=== PATIENT | male | born 1945 | race Caucasian/White ===

== ENCOUNTER 2022-09-18 19:47 | Inpatient (IN) | payer MEDICARE ==
[~2022-09-18] VITALS: Ht 175.3 cm; Wt 102.0 kg
[2022-09-18 22:23] LABS: COVID AG,FIA SOURCE NASAL SWAB
[2022-09-18 22:25] LABS: BASOPHILS % (AUTO) 0.4 % (0.0-2.0); EOSINOPHILS % (AUTO) 1.2 % (1.0-6.0); HEMATOCRIT 46.3 % (41-53); HEMOGLOBIN 15.5 g/dL (13.5-17.5); LYMPHOCYTES # (AUTO) 1.1 K/uL (1.0-4.8); LYMPHOCYTES % (AUTO) 14.3 % (22.0-44.0); MEAN CORPUSCULAR HEMOGLOBIN 30.6 pg (26.0-34.0); MEAN CORPUSCULAR HGB CONC 33.5 G/dL (31.0-37.0); MEAN CORPUSCULAR VOLUME 91 fL (80-100); MONOCYTES # (AUTO) 1.5 K/uL (0.1-1.0); NEUTROPHILS # (AUTO) 4.7 K/uL (1.8-7.7); NEUTROPHILS % (AUTO) 63.6 % (40.0-70.0); PLATELET COUNT (AUTO) 161 K/uL (150-450); RED BLOOD CELL COUNT(AUTO) 5.07 MIL/uL (4.50-5.90); RED CELL DISTRIBUTION WIDTH 14.3 % (11.5-14.5)
[2022-09-18 22:34] LABS: CALCIUM, TOTAL 10.6 mg/dL (8.8-10.5); CREATININE 1.53 mg/dL (0.60-1.30); POTASSIUM 4.5 mmol/L (3.5-5.1)
[2022-09-18 22:40] LABS: ALBUMIN 4.3 g/dL (3.4-5.0); BILIRUBIN,TOTAL 0.7 mg/dL (0.1-1.0); TOTAL PROTEIN, SERUM 8.1 g/dL (6.4-8.2)
[2022-09-18 22:42] LABS: INFLUENZA TYPE A NEGATIVE FOR TYPE A (NEGATIVE); INFLUENZA TYPE B NEGATIVE FOR TYPE B (NEGATIVE)
[2022-09-18 22:43] LABS: INR 1.1 (0.9-1.1); PROTHROMBIN TIME 11.2 SEC (9.4-11.6)
[2022-09-18 22:46] LABS: MONOCYTES % (AUTO) 20.5 % (2.0-9.0)
[2022-09-18] MEDS ORDERED: BENZONATATE 100 MG CAPSULE PO PRN (23:30)
[2022-09-18] MEDS ORDERED: ONDANSETRON HCL 4 MG/2 ML VIAL IVP PRN (23:30)
[2022-09-18 23:59] LABS: D-DIMER 1.51 mg/L FEU (0.00-0.50)
[2022-09-19] VITALS (7 sets, daily range): BP systolic 112–143; BP diastolic 53–82
[2022-09-19] MEDS ORDERED: HEPARIN SODIUM,PORCINE 5,000 UNITS/ML VIAL SQ SCH
[2022-09-19] MEDS ORDERED: REMDESIVIR 200 MG in SODIUM CHLORIDE 0.9% 250 ML IV ONE ×2
[2022-09-19 00:09] LABS: C-REACTIVE PROTEIN QUANT 0.12 mg/dL (0.00-0.30)
[2022-09-19] MEDS ORDERED: SODIUM CHLORIDE 0.9% 500 ML IV ONE (00:23)
[2022-09-19] MEDS ORDERED: PNEUMOCOCCAL VACCINE POLYVALENT 0.5 ML VIAL [PPSV23] IM. ONE (01:45)
[2022-09-19] MEDS ORDERED: HEPARIN SODIUM,PORCINE 5,000 UNITS/ML VIAL IVP PRN ×2 (06:30)
[2022-09-19] MEDS ORDERED: HEPARIN SODIUM 25000 UNITS/D5W 250 ML IV PRN (06:30)
[2022-09-19 06:54] LABS: BASOPHILS % (AUTO) 0.7 % (0.0-2.0); EOSINOPHILS % (AUTO) 0.9 % (1.0-6.0); HEMATOCRIT 45.8 % (41-53); HEMOGLOBIN 15.2 g/dL (13.5-17.5); LYMPHOCYTES # (AUTO) 0.9 K/uL (1.0-4.8); LYMPHOCYTES % (AUTO) 15.3 % (22.0-44.0); MEAN CORPUSCULAR HEMOGLOBIN 30.4 pg (26.0-34.0); MEAN CORPUSCULAR HGB CONC 33.1 G/dL (31.0-37.0); MEAN CORPUSCULAR VOLUME 92 fL (80-100); MONOCYTES # (AUTO) 1.2 K/uL (0.1-1.0); NEUTROPHILS # (AUTO) 3.8 K/uL (1.8-7.7); NEUTROPHILS % (AUTO) 63.1 % (40.0-70.0); PLATELET COUNT (AUTO) 138 K/uL (150-450); RED BLOOD CELL COUNT(AUTO) 4.98 MIL/uL (4.50-5.90); RED CELL DISTRIBUTION WIDTH 14.4 % (11.5-14.5)
[2022-09-19 07:08] LABS: D-DIMER 1.27 mg/L FEU (0.00-0.50)
[2022-09-19] MEDS ORDERED: ALBUTEROL SULFATE 2.5 MG/0.5 ML NEB SOLUTION NEB PRN (07:15)
[2022-09-19] MEDS ORDERED: DEXAMETHASONE SOD PHOS 4 MG/ML VIAL IVP ONE (07:15)
[2022-09-19] MEDS ORDERED: IPRATROPIUM BROMIDE 0.5 MG/2.5 ML NEB SOLUTION NEB PRN (07:15)
[2022-09-19] MEDS ORDERED: BENZONATATE 100 MG CAPSULE PO PRN (07:15)
[2022-09-19 07:40] LABS: ALBUMIN 3.9 g/dL (3.4-5.0); BILIRUBIN,TOTAL 0.7 mg/dL (0.1-1.0); C-REACTIVE PROTEIN QUANT 0.18 mg/dL (0.00-0.30); CALCIUM, TOTAL 9.9 mg/dL (8.8-10.5); CREATININE 1.43 mg/dL (0.60-1.30); POTASSIUM 4.5 mmol/L (3.5-5.1); TOTAL PROTEIN, SERUM 7.5 g/dL (6.4-8.2)
[2022-09-19] MEDS ORDERED: GLIP5TAB12 PO (09:09)
[2022-09-19] MEDS ORDERED: IPRA4AER IH (09:09)
[2022-09-19] MEDS ORDERED: LOSA-382 PO (09:09)
[2022-09-19] MEDS ORDERED: NITR0.4T52 SL (09:09)
[2022-09-19] MEDS ORDERED: TEMA15CA PO (09:09)
[2022-09-19] MEDS ORDERED: FISH1CAP27 PO (09:09)
[2022-09-19] MEDS ORDERED: ATOR40TA28 PO (09:09)
[2022-09-19] MEDS ORDERED: ASPI-1450 PO (09:09)
[2022-09-19] MEDS ORDERED: PRED1 PO (09:09)
[2022-09-19] MEDS ORDERED: NIAC500T7 PO (09:09)
[2022-09-19] MEDS ORDERED: LEVO25TA9 PO (09:09)
[2022-09-19] MEDS ORDERED: SPIR-37 PO (09:09)
[2022-09-19] MEDS ORDERED: METF-1211 PO (09:09)
[2022-09-19] MEDS ORDERED: CARV12 PO (09:09)
[2022-09-19] MEDS: ENOXAPARIN SODIUM 60 MG/0.6 ML PF SYRINGE SQ SCH (10:56)
[2022-09-19] MEDS: ASCORBIC ACID 500 MG TABLET PO SCH ×2 (11:29→23:31)
[2022-09-19] MEDS: ZINC SULFATE 220 MG CAPSULE PO SCH ×2 (11:29→23:31)
[2022-09-19] MEDS: FAMOTIDINE 10 MG/ML 2 ML VIAL IVP SCH (11:30)
[2022-09-19] MEDS: INSULIN LISPRO 100 UNITS/ML SQ PRN ×2 (12:11→18:04)
[2022-09-19] MEDS ORDERED: DEXTROSE 50%-WATER 25 GM/50 ML SYRINGE IVP PRN (12:15)
[2022-09-19] MEDS ORDERED: ALBUTEROL SULFATE HFA 90 MCG/PUFF 8 GM INHALER IH PRN (13:45)
[2022-09-19] MEDS ORDERED: NITROGLYCERIN 0.4 MG SUBLINGUAL TABLET #25 SL PRN (13:45)
[2022-09-19 14:31] LABS: GLUCOMETER DEV NAME(LOC) 6N.1; GLUCOSE,POINT OF CARE 248 MG/DL (70-110)
[2022-09-19 17:46] LABS: GLUCOMETER DEV NAME(LOC) 5S.2B; GLUCOSE,POINT OF CARE 154 MG/DL (70-110)
[2022-09-19] MEDS: BUDESONIDE 0.5 MG/2 ML NEB SOLUTION NEB SCH (19:54)
[2022-09-19] MEDS: OMEGA-3/DHA/EPA/FISH OIL 1,000 MG CAPSULE PO SCH (21:00)
[2022-09-19] MEDS ORDERED: OMEGA-3/DHA/EPA/FISH OIL 1,000 MG CAPSULE PO SCH (21:00)
[2022-09-19 22:56] LABS: GLUCOMETER DEV NAME(LOC) 5N.1C; GLUCOSE,POINT OF CARE 129 MG/DL (70-110)
[2022-09-19] MEDS: CARVEDILOL 12.5 MG TABLET PO SCH (23:31)
[2022-09-19] MEDS: REMDESIVIR 100 MG in SODIUM CHLORIDE 0.9% 250 ML IV SCH (23:31)
[2022-09-20 03:35] VITALS: BP 124/64
[2022-09-20 06:26] LABS: GLUCOMETER DEV NAME(LOC) 5S.1B; GLUCOSE,POINT OF CARE 113 MG/DL (70-110)
[2022-09-20] MEDS: BUDESONIDE 0.5 MG/2 ML NEB SOLUTION NEB SCH ×2 (07:10→20:32)
[2022-09-20 08:15] VITALS: BP 110/73
[2022-09-20] MEDS: ENOXAPARIN SODIUM 60 MG/0.6 ML PF SYRINGE SQ SCH (09:25)
[2022-09-20] MEDS: DEXAMETHASONE SOD PHOS 4 MG/ML VIAL IVP SCH (09:26)
[2022-09-20] MEDS: FAMOTIDINE 10 MG/ML 2 ML VIAL IVP SCH (09:27)
[2022-09-20] MEDS: ATORVASTATIN CALCIUM 40 MG TABLET PO SCH (09:27)
[2022-09-20] MEDS: OMEGA-3/DHA/EPA/FISH OIL 1,000 MG CAPSULE PO SCH ×2 (09:27→22:53)
[2022-09-20] MEDS: ASCORBIC ACID 500 MG TABLET PO SCH ×2 (09:28→22:53)
[2022-09-20] MEDS: ZINC SULFATE 220 MG CAPSULE PO SCH ×2 (09:28→22:53)
[2022-09-20] MEDS: ASPIRIN 81 MG CHEWABLE TABLET PO SCH (09:28)
[2022-09-20] MEDS: CARVEDILOL 12.5 MG TABLET PO SCH ×2 (09:29→22:54)
[2022-09-20] MEDS: LOSARTAN POTASSIUM 50 MG TABLET PO SCH (09:29)
[2022-09-20] MEDS: ALBUTEROL SULFATE HFA 90 MCG/PUFF 8 GM INHALER IH SCH ×2 (12:00→18:53)
[2022-09-20 12:30] VITALS: BP 105/57
[2022-09-20 15:17] LABS: GLUCOMETER DEV NAME(LOC) 5S.2B; GLUCOSE,POINT OF CARE 132 MG/DL (70-110)
[2022-09-20 15:36] LABS: BASOPHILS % (AUTO) 0.6 % (0.0-2.0); EOSINOPHILS % (AUTO) 0 % (1.0-6.0); HEMATOCRIT 44.4 % (41-53); HEMOGLOBIN 15.1 g/dL (13.5-17.5); LYMPHOCYTES # (AUTO) 0.6 K/uL (1.0-4.8); LYMPHOCYTES % (AUTO) 12.6 % (22.0-44.0); MEAN CORPUSCULAR VOLUME 91 fL (80-100); MONOCYTES # (AUTO) 0.3 K/uL (0.1-1.0); MONOCYTES % (AUTO) 5.7 % (2.0-9.0); NEUTROPHILS # (AUTO) 4.1 K/uL (1.8-7.7); NEUTROPHILS % (AUTO) 81.1 % (40.0-70.0); PLATELET COUNT (AUTO) 164 K/uL (150-450); RED BLOOD CELL COUNT(AUTO) 4.87 MIL/uL (4.50-5.90); RED CELL DISTRIBUTION WIDTH 14.2 % (11.5-14.5)
[2022-09-20 15:57] LABS: ALBUMIN 3.8 g/dL (3.4-5.0); BILIRUBIN,TOTAL 0.6 mg/dL (0.1-1.0); C-REACTIVE PROTEIN QUANT 0.23 mg/dL (0.00-0.30); CALCIUM, TOTAL 9.1 mg/dL (8.8-10.5); CREATININE 1.48 mg/dL (0.60-1.30); MAGNESIUM 1.9 mg/dL (1.80-2.40); POTASSIUM 4.6 mmol/L (3.5-5.1); TOTAL PROTEIN, SERUM 7.7 g/dL (6.4-8.2)
[2022-09-20 16:30] VITALS: BP 109/64
[2022-09-20 20:02] VITALS: BP 115/68
[2022-09-20] MEDS: REMDESIVIR 100 MG in SODIUM CHLORIDE 0.9% 250 ML IV SCH (22:54)
[2022-09-20] MEDS: TEMAZEPAM 15 MG CAPSULE PO PRN (22:54)
[2022-09-20] MEDS: INSULIN LISPRO 100 UNITS/ML SQ PRN (23:13)
[2022-09-21 00:16] VITALS: BP 126/75
[2022-09-21 00:37] LABS: GLUCOMETER DEV NAME(LOC) 5N.1C; GLUCOSE,POINT OF CARE 191 MG/DL (70-110)
[2022-09-21 05:19] VITALS: BP 109/69
[2022-09-21] MEDS: ALBUTEROL SULFATE HFA 90 MCG/PUFF 8 GM INHALER IH SCH ×4 (06:00→17:41)
[2022-09-21 06:55] LABS: BASOPHILS % (AUTO) 0.4 % (0.0-2.0); EOSINOPHILS % (AUTO) 0.1 % (1.0-6.0); HEMATOCRIT 44.3 % (41-53); HEMOGLOBIN 15.3 g/dL (13.5-17.5); LYMPHOCYTES # (AUTO) 1.3 K/uL (1.0-4.8); LYMPHOCYTES % (AUTO) 22.8 % (22.0-44.0); MEAN CORPUSCULAR HEMOGLOBIN 31.4 pg (26.0-34.0); MEAN CORPUSCULAR HGB CONC 34.5 G/dL (31.0-37.0); MEAN CORPUSCULAR VOLUME 91 fL (80-100); MONOCYTES # (AUTO) 0.8 K/uL (0.1-1.0); MONOCYTES % (AUTO) 13.9 % (2.0-9.0); NEUTROPHILS # (AUTO) 3.5 K/uL (1.8-7.7); NEUTROPHILS % (AUTO) 62.8 % (40.0-70.0); PLATELET COUNT (AUTO) 157 K/uL (150-450); RED BLOOD CELL COUNT(AUTO) 4.87 MIL/uL (4.50-5.90); RED CELL DISTRIBUTION WIDTH 14.5 % (11.5-14.5)
[2022-09-21 07:09] VITALS: BP 114/70
[2022-09-21 07:16] LABS: ALBUMIN 3.7 g/dL (3.4-5.0); BILIRUBIN,TOTAL 0.5 mg/dL (0.1-1.0); C-REACTIVE PROTEIN QUANT 0.09 mg/dL (0.00-0.30); CALCIUM, TOTAL 9.1 mg/dL (8.8-10.5); CREATININE 1.49 mg/dL (0.60-1.30); POTASSIUM 4.7 mmol/L (3.5-5.1); TOTAL PROTEIN, SERUM 7.2 g/dL (6.4-8.2)
[2022-09-21] MEDS: BUDESONIDE 0.5 MG/2 ML NEB SOLUTION NEB SCH ×2 (08:06→20:31)
[2022-09-21] MEDS: OMEGA-3/DHA/EPA/FISH OIL 1,000 MG CAPSULE PO SCH ×2 (09:21→21:15)
[2022-09-21] MEDS: FAMOTIDINE 10 MG/ML 2 ML VIAL IVP SCH (09:21)
[2022-09-21] MEDS: ATORVASTATIN CALCIUM 40 MG TABLET PO SCH (09:22)
[2022-09-21] MEDS: ASPIRIN 81 MG CHEWABLE TABLET PO SCH (09:22)
[2022-09-21] MEDS: DEXAMETHASONE SOD PHOS 4 MG/ML VIAL IVP SCH (09:22)
[2022-09-21] MEDS: CARVEDILOL 12.5 MG TABLET PO SCH ×2 (09:22→21:15)
[2022-09-21] MEDS: ASCORBIC ACID 500 MG TABLET PO SCH ×2 (09:23→21:15)
[2022-09-21] MEDS: ZINC SULFATE 220 MG CAPSULE PO SCH ×2 (09:23→21:15)
[2022-09-21] MEDS: LOSARTAN POTASSIUM 50 MG TABLET PO SCH (09:23)
[2022-09-21] MEDS: ENOXAPARIN SODIUM 60 MG/0.6 ML PF SYRINGE SQ SCH (09:26)
[2022-09-21 11:00] VITALS: BP 120/72
[2022-09-21] MEDS: INSULIN LISPRO 100 UNITS/ML SQ PRN ×3 (12:19→21:31)
[2022-09-21 18:31] VITALS: BP 118/70
[2022-09-21 20:07] LABS: GLUCOMETER DEV NAME(LOC) 5S.1B; GLUCOSE,POINT OF CARE 254 MG/DL (70-110)
[2022-09-21 20:07] LABS: GLUCOMETER DEV NAME(LOC) 5S.1B; GLUCOSE,POINT OF CARE 126 MG/DL (70-110)
[2022-09-21] MEDS: TEMAZEPAM 15 MG CAPSULE PO PRN (21:24)
[2022-09-21 21:35] VITALS: BP 119/78
[2022-09-21] MEDS: REMDESIVIR 100 MG in SODIUM CHLORIDE 0.9% 250 ML IV SCH (22:30)
[2022-09-22 01:56] VITALS: BP 125/52
[2022-09-22 02:16] LABS: GLUCOMETER DEV NAME(LOC) 5S.1B; GLUCOSE,POINT OF CARE 188 MG/DL (70-110)
[2022-09-22] MEDS: ALBUTEROL SULFATE HFA 90 MCG/PUFF 8 GM INHALER IH SCH ×3 (06:00→12:00)
[2022-09-22 06:58] LABS: BASOPHILS % (AUTO) 0.2 % (0.0-2.0); EOSINOPHILS % (AUTO) 0 % (1.0-6.0); HEMATOCRIT 42.6 % (41-53); HEMOGLOBIN 14.7 g/dL (13.5-17.5); LYMPHOCYTES # (AUTO) 1.1 K/uL (1.0-4.8); LYMPHOCYTES % (AUTO) 15.1 % (22.0-44.0); MEAN CORPUSCULAR HEMOGLOBIN 31.7 pg (26.0-34.0); MEAN CORPUSCULAR HGB CONC 34.5 G/dL (31.0-37.0); MEAN CORPUSCULAR VOLUME 92 fL (80-100); MONOCYTES # (AUTO) 0.7 K/uL (0.1-1.0); MONOCYTES % (AUTO) 9.7 % (2.0-9.0); NEUTROPHILS # (AUTO) 5.5 K/uL (1.8-7.7); PLATELET COUNT (AUTO) 155 K/uL (150-450); RED BLOOD CELL COUNT(AUTO) 4.63 MIL/uL (4.50-5.90); RED CELL DISTRIBUTION WIDTH 14.1 % (11.5-14.5)
[2022-09-22 07:26] LABS: ALANINE AMINOTRANSFERASE 26 U/L (12-78); ALBUMIN 3.5 g/dL (3.4-5.0); ALKALINE PHOSPHATASE 54 U/L (46-116); ANION GAP 5 mmol/L (8-16); ASPARTATE AMINOTRANSFERASE 18 U/L (15-37); BILIRUBIN,TOTAL 0.4 mg/dL (0.1-1.0); CARBON DIOXIDE 29 mmol/L (22-29); CHLORIDE 103 mmol/L (98-107); CREATININE 1.47 mg/dL (0.60-1.30); FERRITIN 154 ng/mL (26-388); GLUCOSE,RANDOM 142 mg/dL (70-110); POTASSIUM 4.7 mmol/L (3.5-5.1); SODIUM SERUM 137 mmol/L (136-145); TOTAL PROTEIN, SERUM 6.8 g/dL (6.4-8.2); UREA NITROGEN, BLOOD 40 mg/dL (7-18)
[2022-09-22 07:28] LABS: GLOMERULAR FILTR. RATE CALC 47 mL/min (>60)
[2022-09-22 07:29] LABS: C-REACTIVE PROTEIN QUANT < 0.05 mg/dL (0.00-0.30)
[2022-09-22 08:11] VITALS: BP 120/92
[2022-09-22] MEDS: BUDESONIDE 0.5 MG/2 ML NEB SOLUTION NEB SCH (08:44)
[2022-09-22] MEDS: ASCORBIC ACID 500 MG TABLET PO SCH (09:34)
[2022-09-22] MEDS: ASPIRIN 81 MG CHEWABLE TABLET PO SCH (09:34)
[2022-09-22] MEDS: ZINC SULFATE 220 MG CAPSULE PO SCH (09:34)
[2022-09-22] MEDS: DEXAMETHASONE SOD PHOS 4 MG/ML VIAL IVP SCH (09:34)
[2022-09-22] MEDS: ATORVASTATIN CALCIUM 40 MG TABLET PO SCH (09:35)
[2022-09-22] MEDS: CARVEDILOL 12.5 MG TABLET PO SCH (09:35)
[2022-09-22] MEDS: OMEGA-3/DHA/EPA/FISH OIL 1,000 MG CAPSULE PO SCH (09:35)
[2022-09-22] MEDS: FAMOTIDINE 10 MG/ML 2 ML VIAL IVP SCH (09:35)
[2022-09-22] MEDS: LOSARTAN POTASSIUM 50 MG TABLET PO SCH (09:35)
[2022-09-22] MEDS: ENOXAPARIN SODIUM 60 MG/0.6 ML PF SYRINGE SQ SCH (09:36)
[2022-09-22 11:21] VITALS: BP 116/82
[2022-09-22] MEDS ORDERED: DEXA6TAB PO (12:03)
[2022-09-22] MEDS ORDERED: ALBU8HFA IH (12:03)
[2022-09-22 12:17] LABS: GLUCOMETER DEV NAME(LOC) 5S.2B; GLUCOSE,POINT OF CARE 139 MG/DL (70-110)
[2022-09-22 15:30] VITALS: BP 120/80
== END 2022-09-22 16:45 | disposition home or self-care (01) | DRG 177 ==
LOC: EMS 19:51 → 6S 09-19 00:02 → 6N 09-19 00:17 → 5S 09-19 12:00
PROVIDERS: ADMIT Internal Medicine; ATTEND Internal Medicine
PROC: XW033E5 Introduction of Remdesivir Anti-infective into Peripheral Vein, Percutaneous Approach, New Technology Group 5 (ICD-10-PCS; principal; 2022-09-19)
DX: U07.1 COVID-19 (principal); J12.82 Pneumonia due to coronavirus disease 2019; J96.21 Acute and chronic respiratory failure with hypoxia; J44.0 Chronic obstructive pulmonary disease with (acute) lower respiratory infection; I13.0 Hypertensive heart and chronic kidney disease with heart failure and stage 1 through stage 4 chronic kidney disease, or unspecified chronic kidney disease; D68.9 Coagulation defect, unspecified; E66.9 Obesity, unspecified; I50.9 Heart failure, unspecified; E11.22 Type 2 diabetes mellitus with diabetic chronic kidney disease; E83.52 Hypercalcemia; I25.10 Atherosclerotic heart disease of native coronary artery without angina pectoris; N18.9 Chronic kidney disease, unspecified; R79.89 Other specified abnormal findings of blood chemistry; E78.00 Pure hypercholesterolemia, unspecified; Z68.34 Body mass index [BMI] 34.0-34.9, adult; Z99.81 Dependence on supplemental oxygen; I25.2 Old myocardial infarction; Z79.82 Long term (current) use of aspirin; Z82.49 Family history of ischemic heart disease and other diseases of the circulatory system; Z87.891 Personal history of nicotine dependence; Z95.0 Presence of cardiac pacemaker; Z79.899 Other long term (current) drug therapy; Z95.1 Presence of aortocoronary bypass graft
CPT/HCPCS: 71045; 80053; 82728; 82962; 83605; 83615; 83735; 83880; 84145; 84484; 85025; 85379; 85610; 85730; 86140; 87804; 93005; 94640; 97161; 99285; J1100; J1644; J1650; J3490; J3535; J7040; J7050; Q9967; 36415-L1; 36415-TC